=== PATIENT | female | born 1930 | race African-American/Black ===

== ENCOUNTER 2020-07-10 06:40 | Day surgery (SDC) | payer MEDICARE ==
[~2020-07-10 06:40] MED LIST: AMLO-186 PO; ASPI-482 PO; ATEN50TA PO; CARV12.5 PO; CILO100T PO; CIPROFLOXACIN 0.3% OPHTH SOLUTION 5ML BOTTLE. OS ONE; FURO-69 PO; HYDR-2867 PO; LIDOCAINE 2% JELLY 6ML IN APPLICATOR. OS ONE; LOSA-73 PO; OMEP20CA16 PO; PROPARACAINE 0.5% OPHTH SOLUTION 15ML BOTTLE. OS ONE; SENN8.6T99 PO; TRAM1TAB4 PO
[2020-07-10] MEDS ORDERED: CHONDROIT-SOD-HYALURONATE KIT. ONE (07:12)
[2020-07-10] MEDS ORDERED: NEO/POLYMYX/DEXAMETH OPHTH OINTMENT 3.5GM TUBE. ONE (07:12)
[2020-07-10] MEDS ORDERED: CHONDROITIN-SOD-HYALURONATE 0.5 ML DISP.SYRIN. ONE (07:13)
[2020-07-10] MEDS ORDERED: LIDOCAINE 1%/PHENYLEPH 1.5% PF OPHTH 1 ML VIAL. ONE (07:13)
[2020-07-10] MEDS ORDERED: IV NORMAL SALINE 1000ML BAG 1,000 ML IV ONE (07:15)
[2020-07-10] MEDS: CYCLOPENTOLATE 1% OPHTH SOLUTION 2ML BOTTLE. OS SCH ×3 (07:30→07:40)
[2020-07-10] MEDS: PHENYLEPHRINE 10% OPHTH SOLUTION 5ML BOTTLE. OS SCH ×3 (07:30→07:40)
[2020-07-10] MEDS ORDERED: MIDAZOLAM HCL/PF 2 MG/2 ML VIAL. ONE (08:43)
[2020-07-10 10:35] VITALS: BP 180/84
--- NOTE | 2020-07-10 10:53 | OP ---
DATE OF SURGERY: 07/10/2020 DATE OF PROCEDURE: 07/10/2020. PREOPERATIVE DIAGNOSES: 1. Incipient cataract of the left eye. 2. Open-angle glaucoma of the left eye. POSTOPERATIVE DIAGNOSES: 1. Incipient cataract of the left eye. 2. Open-angle glaucoma of the left eye. PROCEDURE PERFORMED: 1. Cataract extraction with posterior chamber intraocular lens implantation of the left eye with capsular staining with VisionBlue. 2. [place] dual blade goniotomy of the left eye. SURGEON: Eloy Holloway MD. ANESTHESIA: Topical with monitored anesthesia care. DESCRIPTION OF PROCEDURE: The left eye was prepped with Betadine in the usual sterile fashion and draped. A paracentesis was performed followed by instillation of preservative-free phenylephrine admixed with lidocaine and balanced salt solution. Air was injected in the anterior chamber, followed by VisionBlue to stain the incipient cortical and nuclear cataract. A temporal clear corneal incision was made and Viscoat was used to evacuate the air in the VisionBlue. A capsulorrhexis was then performed, followed by hydrodissection. Please note that prior to this step, the head and microscope were repositioned to visualize the anterior chamber angle and the [place] dual blade was used to excise a portion of the nasal trabecular meshwork. Following this step, the phacoemulsification handpiece was used to remove the nucleus in a modified stop and chop fashion. The IA handpiece was used to remove the remainder of the cortex. Viscoelastic was injected in the capsular bag and an Ok model [id number] with a power of 24.5 diopters was placed into the capsular bag. Balanced salt solution was used to hydrate the corneal wounds and the viscoelastic evacuated with the IA handpiece. Once no leak was noted, Maxitrol was placed on the eye and the eye shielded and the patient was sent to the recovery room uneventfully. The patient was given Diamox postoperatively and asked to follow up the following Monday or call for any questions or concerns. CARMELA DR: Tomas TID: [id number]
== END 2020-07-10 11:15 | disposition home or self-care (01) ==
LOC: SURG 06:40
PROVIDERS: ATTEND Ophthalmology
DX: H25.092 Other age-related incipient cataract, left eye (principal); H40.10X0 Unspecified open-angle glaucoma, stage unspecified; I13.2 Hypertensive heart and chronic kidney disease with heart failure and with stage 5 chronic kidney disease, or end stage renal disease; I50.9 Heart failure, unspecified; N18.6 End stage renal disease; E78.00 Pure hypercholesterolemia, unspecified; M19.90 Unspecified osteoarthritis, unspecified site; F32.9 Major depressive disorder, single episode, unspecified; Z90.49 Acquired absence of other specified parts of digestive tract; Z98.890 Other specified postprocedural states; Z79.82 Long term (current) use of aspirin; Z79.899 Other long term (current) drug therapy; Z82.49 Family history of ischemic heart disease and other diseases of the circulatory system; Z20.822 Contact with and (suspected) exposure to COVID-19
CPT/HCPCS: 65820; 66984; 87426; J0171; J0690; J1580; J2250; J3490; U0003; U0005; V2632

== ENCOUNTER 2020-07-24 10:47 | Day surgery (SDC) | payer MEDICARE ==
[~2020-07-24] VITALS: Ht 165.1 cm; Wt 54.4 kg
[2020-07-24] MEDS: PHENYLEPHRINE 10% OPHTH SOLUTION 5ML BOTTLE. OD SCH ×3 (10:45→11:15)
[~2020-07-24 10:47] MED LIST changes: +BALANCED SALT IRRIG OPHTH SOLN 15 ML BOTTLE. ONE; +CHONDROIT-SOD-HYALURONATE KIT. ONE; +CHONDROITIN-SOD-HYALURONATE 0.5 ML DISP.SYRIN. ONE; +CIPROFLOXACIN 0.3% OPHTH SOLUTION 5ML BOTTLE. OD ONE; -CIPROFLOXACIN 0.3% OPHTH SOLUTION 5ML BOTTLE. OS ONE; +HYDROmorphone 2 MG/ML VIAL IVP PRN; +IV RINGERS,LACTATED 1000ML 1,000 ML IV SCH; +LIDOCAINE 1% PF 2 ML VIAL. ONE; +LIDOCAINE 2% JELLY 6ML IN APPLICATOR. OD ONE; +LIDOCAINE 2% JELLY 6ML IN APPLICATOR. ONE; -LIDOCAINE 2% JELLY 6ML IN APPLICATOR. OS ONE; +MORPHINE SULFATE 2 MG/ML VIAL. IVP PRN; +NEO/POLYMYX/DEXAMETH OPHTH OINTMENT 3.5GM TUBE. ONE; +PROCHLORPERAZINE 10 MG/2 ML VIAL. IVP PRN; +PROPARACAINE 0.5% OPHTH SOLUTION 15ML BOTTLE. OD ONE; -PROPARACAINE 0.5% OPHTH SOLUTION 15ML BOTTLE. OS ONE; +fentaNYL PF VIAL 100 MCG/2 ML VIAL IVP PRN
[2020-07-24] MEDS: CYCLOPENTOLATE 2% OPHTH SOLUTION 2ML BOTTLE. OD SCH ×3 (11:08→11:20)
[2020-07-24] MEDS ORDERED: IV NORMAL SALINE 1000ML BAG 1,000 ML IV SCH (11:15)
[2020-07-24] MEDS ORDERED: MIDAZOLAM HCL/PF 2 MG/2 ML VIAL. ONE (11:51)
[2020-07-24 12:32] VITALS: BP 189/90
--- NOTE | 2020-07-24 13:50 | OP ---
DATE OF SURGERY: 07/24/2020 PREOPERATIVE DIAGNOSES: 1. Open angle glaucoma of the right eye. 2. Incipient cataract of the right eye. PROCEDURES: 1. Cataract extraction with posterior chamber intraocular lens implantation with Trypan blue staining. 2. [place] dual blade goniotomy of the right eye. DESCRIPTION OF PROCEDURE: The right eye was prepped with Betadine in the usual sterile fashion and draped. A paracentesis was performed followed by instillation of preservative-free lidocaine admixed with balanced salt solution and phenylephrine. Trypan blue was used to stain the anterior capsule and evacuated with ____ under air. A temporal clear corneal incision was made, followed by adequate visualization of the capsulorrhexis. A balanced salt solution was used to hydrodissect and the phacoemulsification handpiece was used to remove the nucleus. The IA handpiece was used to remove the cortex. There was significant laxity of the posterior capsule as well and so a very small cortical remnant was left nasally in order to not risk posterior capsular rupture. Viscoelastic was then injected in the capsular bag and an Ok with the daniele r of SN60 with a power of 24.5 diopters was placed into the capsular bag. Please note that the head and eye were repositioned in the microscope to visualize the anterior chamber angle and a goniotomy was also performed. The viscoelastic was then evacuated with the IA handpiece and once no leak was noted, Maxitrol was placed on the eye and the eye was shielded and the patient was sent to the recovery room uneventfully. [facility] [place] Tomas TID: [id number]
== END 2020-07-24 12:42 | disposition home or self-care (01) ==
LOC: SURG 10:47
PROVIDERS: ATTEND Ophthalmology
DX: H25.091 Other age-related incipient cataract, right eye (principal); H40.10X0 Unspecified open-angle glaucoma, stage unspecified; I13.2 Hypertensive heart and chronic kidney disease with heart failure and with stage 5 chronic kidney disease, or end stage renal disease; I50.9 Heart failure, unspecified; N18.6 End stage renal disease; Z99.2 Dependence on renal dialysis; M19.90 Unspecified osteoarthritis, unspecified site; F32.9 Major depressive disorder, single episode, unspecified; Z90.49 Acquired absence of other specified parts of digestive tract; Z98.890 Other specified postprocedural states; Z79.82 Long term (current) use of aspirin; Z79.899 Other long term (current) drug therapy; Z82.49 Family history of ischemic heart disease and other diseases of the circulatory system; Z20.822 Contact with and (suspected) exposure to COVID-19
CPT/HCPCS: 65820; 66984; 87426; J0171; J0690; J1580; J2250; J3490; V2632